=== PATIENT | female | born 1980 | race Caucasian/White ===

== ENCOUNTER 2017-10-02 13:26 | Emergency (ER) | payer MEDICAID ==
[~2017-10-02] VITALS: Ht 147.3 cm; Wt 115.7 kg
[2017-10-02 13:28] VITALS: BP 150/68
[2017-10-02 14:20] VITALS: BP 136/63
== END 2017-10-02 14:20 | disposition home or self-care (01) ==
LOC: MED 13:26
DX: M26.622 Arthralgia of left temporomandibular joint (principal); Z88.8 Allergy status to other drugs, medicaments and biological substances
CPT/HCPCS: 99283

== ENCOUNTER 2019-06-06 20:08 | Emergency (ER) | payer MEDICAID ==
[~2019-06-06] VITALS: Ht 142.2 cm; Wt 112.9 kg
[2019-06-06 20:10] VITALS: BP 127/55
--- NOTE | 2019-06-06 20:18 | NUR ---
PT AMBULATED TO LOBBY WITH VSS
--- NOTE | 2019-06-06 21:09 | NUR ---
AMBULATED TO BED 03 WITH SLOW, STEADY GAIT. PT GRIMACING IN PAIN WHILE WALKING. REPORT GIVEN TO KYLER RN.
--- NOTE | 2019-06-06 21:20 | NUR ---
38 Y/O FEMALE BIB SELF WITH C/O 8/10 LOWER AND MID BACK PAIN S/P FALL X 1 WEEK AGO. PT DOES NOT REMEMBER IF SHE HIT HER HEAD BUT C/O INTERMITTENT DIZZINESS. DENIES LOC. PT TOOK TYLENOL FOR PAIN RELIEF AT 1700 WITH SLIGHT RELIEF OF PAIN. DENIES N/V. PT SITTING IN BED POSITIONED FOR COMFORT. RESPIRATIONS ARE EVEN AND UNLABORED, VSS. MED HX: ANEMIA ALLERGIES: ADVIL
--- NOTE | 2019-06-06 21:45 | NUR ---
DR SANTAMARIA AT BEDSIDE
[2019-06-06] MEDS ORDERED: DEXAMETHASONE 10 MG/ML VIAL IM ONE (22:05)
--- NOTE | 2019-06-06 22:05 | NUR ---
RADIOLOGY AT BEDSIDE.
--- NOTE | 2019-06-06 22:28 | NUR ---
PT RETURN FROM XRAY
--- NOTE | 2019-06-06 23:15 | NUR ---
PT SITTING UPRIGHT IN CHAIR. NO C/O PAIN AT THIS TIME. RESPIRATIONS EVEN AND UNLABORED VSS.
[2019-06-06 23:41] VITALS: BP 131/62
--- NOTE | 2019-06-06 23:41 | NUR ---
Patient discharged with v/s stable. Written and verbal after care instructions given and explained. Pt reports feeling better. Patient alert, oriented and verbalized understanding of instructions. Ambulatory with steady gait. All questions addressed prior to discharge. ID band removed. Patient advised to follow up with PMD. Rx of Robaxin and Tramadol given. Patient educated on indication of medication including possible reaction and side effects. Opportunity to ask questions provided and answered.
== END 2019-06-06 23:41 | disposition home or self-care (01) ==
LOC: MED 20:08
DX: S39.012A Strain of muscle, fascia and tendon of lower back, initial encounter (principal); D64.9 Anemia, unspecified; Z88.8 Allergy status to other drugs, medicaments and biological substances; W01.0XXA Fall on same level from slipping, tripping and stumbling without subsequent striking against object, initial encounter; Y93.89 Activity, other specified; Y92.89 Other specified places as the place of occurrence of the external cause; Y99.8 Other external cause status
CPT/HCPCS: 72040; 72080; 81002; 81025; 96372; 99283; J1100

== ENCOUNTER 2021-04-28 09:02 | Emergency (ER) | payer MEDICAID ==
[~2021-04-28] VITALS: Ht 142.2 cm; Wt 115.7 kg
[2021-04-28 09:13] VITALS: BP 150/85
[2021-04-28] MEDS ORDERED: ACETAMINOPHEN 325 MG TAB PO ONE (09:15)
--- NOTE | 2021-04-28 09:20 | NUR ---
Pt ambulated to bed 04
--- NOTE | 2021-04-28 09:26 | NUR ---
40 Y/o Female BIB self for c/o right wrist/arm/shoulder pain S/P Angiogram to the Right radial 11 days ago. Pt's circulation and sensation is bilat strong and palpable, +3. Gen edema +1 noted. S1/S2 noted with clear lung sounds at this time. R wrist remains benigm with no s/sx of active bleeding at this time, no hematoma noted. Denies N/V/D/CP at this time. PmHx: Cardiomegaly, HTN, HLD, Heart murmur Allergies: Ibuprofen Home meds: Denies
--- NOTE | 2021-04-28 09:39 | NUR ---
US TECH AT PT BEDSIDE.
--- NOTE | 2021-04-28 10:00 | NUR ---
JODIE Myers at bedside to consult with pt
[2021-04-28] MEDS ORDERED: ACET-2619 PO (10:04)
[2021-04-28 10:14] VITALS: BP 132/84
--- NOTE | 2021-04-28 10:14 | NUR ---
Patient discharged with v/s stable. Written and verbal after care instructions given and explained. Patient verbalized understanding with teachback. Ambulatory with steady gait. All questions addressed prior to discharge. Advised to follow up with PMD.
--- NOTE | 2021-04-28 10:16 | NUR ---
CD from results received and verified with Keira AGUILERA. Given to Pt waiting in lobby
== END 2021-04-28 10:14 | disposition home or self-care (01) ==
LOC: MED 09:02
DX: M79.89 Other specified soft tissue disorders (principal); M79.10 Myalgia, unspecified site; I10 Essential (primary) hypertension; Z79.899 Other long term (current) drug therapy; Z88.6 Allergy status to analgesic agent
CPT/HCPCS: 93922; 93930; 93971; 99284; Q0092

== ENCOUNTER 2022-10-06 08:45 | Emergency (ER) | payer MEDICAID ==
[~2022-10-06] VITALS: Ht 142.2 cm; Wt 104.3 kg
[~2022-10-06 08:45] MED LIST: ACET-2619 PO
[2022-10-06 08:49] VITALS: BP 142/102
--- NOTE | 2022-10-06 08:55 | NUR ---
DIFFICULTY BREATHING, MILD CHEST PAIN. DOES ADMIT TO TAKING HTN MEDS INTERMITTENTLY AND NOT ON A REGULAR BASIS. SPEAKING IN FULL SENTENCES, O2 SATS 99%. PMH: HTN, AORTIC STENOSIS MEDS: BP MEDS
--- NOTE | 2022-10-06 09:00 | NUR ---
TO BED 8 WITH NO ACTIVE DISTRESS, NOTIFIED
--- NOTE | 2022-10-06 09:45 | NUR ---
X-Ray at bedside.
[2022-10-06] MEDS ORDERED: ALBUTEROL 0.083% 2.5 MG/3 ML NEBU INH ONE (10:10)
[2022-10-06 10:46] LABS: BASOPHILS % (AUTO) 0.5 % (0.0-2.0); EOSINOPHILS # (AUTO) 0.2 K/uL (0-0.4); EOSINOPHILS % (AUTO) 2.1 % (0.0-4.0); HEMATOCRIT 35.3 % (36-48); HEMOGLOBIN 11.2 g/dL (12.0-16.0); LYMPHOCYTES # (AUTO) 2.1 K/uL (2.5-16.5); LYMPHOCYTES % (AUTO) 23.4 % (20.5-51.1); MEAN CORPUSCULAR HEMOGLOBIN 24 pg (27-31); MEAN CORPUSCULAR HGB CONC 32 g/dL (33-37); MONOCYTES # (AUTO) 0.5 K/uL (0.8-1.0); MONOCYTES % (AUTO) 5.3 % (1.7-9.3); NEUTROPHILS # (AUTO) 6.1 K/uL (1.8-7.7); NEUTROPHILS % (AUTO) 68.7 % (42.2-75.2); PLATELET COUNT (AUTO) 245 K/uL (140-450); RED CELL DISTRIBUTION WIDTH 16.2 % (11.6-13.7); WHITE BLOOD COUNT (AUTO) 8.9 K/uL (4.8-10.8)
[2022-10-06 11:34] LABS: ALBUMIN 3.2 g/dL (3.4-5.0); ANION GAP 14.6 (8-16); CARBON DIOXIDE 23.6 mmol/L (21-32); CREATININE 0.4 mg/dL (0.6-1.3); POTASSIUM 5.2 mmol/L (3.5-5.1); TOTAL BILIRUBIN 0.7 mg/dL (0.0-1.0)
[2022-10-06] MEDS ORDERED: ALBU0.0912 INH (13:14)
[2022-10-06] MEDS ORDERED: AZIT250T4 PO (13:14)
--- NOTE | 2022-10-06 13:21 | NUR ---
IV removed, catheter intact and site benign. Applied folded 4x4 gauze and tape to stop bleeding.
[2022-10-06 13:30] VITALS: BP 142/102
--- NOTE | 2022-10-06 13:31 | NUR ---
Patient discharged with v/s stable. Written and verbal after care instructions given and explained. Patient verbalized understanding. Ambulatory with steady gait. All questions addressed prior to discharge. Advised to follow up with PMD.
== END 2022-10-06 13:30 | disposition home or self-care (01) ==
LOC: MED 08:45
DX: J20.9 Acute bronchitis, unspecified (principal); Z20.822 Contact with and (suspected) exposure to COVID-19; I25.10 Atherosclerotic heart disease of native coronary artery without angina pectoris; I10 Essential (primary) hypertension; Z88.5 Allergy status to narcotic agent; Z79.899 Other long term (current) drug therapy
CPT/HCPCS: 36415; 71045; 80053; 83880; 84484; 85025; 87426; 87804; 93005; 94640; 94760; 99285; J7613; Q0092

== ENCOUNTER 2023-01-25 17:27 | Emergency (ER) | payer MEDICAID ==
[~2023-01-25] VITALS: Ht 152.4 cm; Wt 118.4 kg
[~2023-01-25 17:27] MED LIST changes: +ALBU0.0912 INH; +AZIT250T4 PO
[2023-01-25 17:38] VITALS: BP 131/85; PULSE 87; RESP 16; TEMP 97.6; O2SAT 98
[2023-01-25] MEDS ORDERED: PROM118S5 PO (18:34)
[2023-01-25] MEDS ORDERED: FLONAS NS (18:34)
[2023-01-25] MEDS ORDERED: SUD30 PO (18:34)
[2023-01-25] MEDS ORDERED: LEVO1.5T39 PO (18:34)
[2023-01-25 19:15] VITALS: BP 131/85; PULSE 87; RESP 16; TEMP 97.6; O2SAT 98
== END 2023-01-25 19:15 | disposition home or self-care (01) ==
LOC: MED 17:27
DX: J06.9 Acute upper respiratory infection, unspecified (principal); J32.9 Chronic sinusitis, unspecified; Z76.0 Encounter for issue of repeat prescription; I10 Essential (primary) hypertension; Z79.899 Other long term (current) drug therapy; Z79.2 Long term (current) use of antibiotics; Z88.6 Allergy status to analgesic agent
CPT/HCPCS: 99283

== ENCOUNTER 2023-10-25 18:44 | Inpatient (IN) | payer MEDICAID ==
[~2023-10-25] VITALS: Ht 142.2 cm; Wt 121.6 kg
[~2023-10-25 18:44] MED LIST changes: +FLONAS NS; +LEVO1.5T39 PO; +PROM118S5 PO; +SUD30 PO
[2023-10-25] MEDS ORDERED: ALBUTEROL SULFATE/IPRATROPIU 3 ML SOL IH ONE (18:53)
[2023-10-25 18:57] VITALS: BP 164/94; PULSE 110; RESP 33; TEMP 98.6; O2SAT 97
[2023-10-25] MEDS: ALBUTEROL SULFATE/IPRATROPIU 3 ML SOL IH ONE ×2 (19:03→19:13)
[2023-10-25 19:04] VITALS: PULSE 114; RESP 22; O2SAT 97
[2023-10-25 19:12] LABS: BASOPHILS # (AUTO) 0.1 K/uL (0.00-0.22); BASOPHILS % (AUTO) 0.4 % (0.0-2.0); EOSINOPHILS # (AUTO) 0.2 K/uL (0-0.4); EOSINOPHILS % (AUTO) 1.4 % (0.0-4.0); HEMATOCRIT 33.2 % (36-48); HEMOGLOBIN 10.2 g/dL (12.0-16.0); LYMPHOCYTES # (AUTO) 2.9 K/uL (2.5-16.5); LYMPHOCYTES % (AUTO) 18.9 % (20.5-51.1); MEAN CORPUSCULAR HEMOGLOBIN 19 pg (27-31); MEAN CORPUSCULAR HGB CONC 31 g/dL (33-37); MEAN CORPUSCULAR VOLUME 60.8 fL (80-94); MONOCYTES # (AUTO) 1.3 K/uL (0.8-1.0); MONOCYTES % (AUTO) 8.2 % (1.7-9.3); NEUTROPHILS # (AUTO) 10.8 K/uL (1.8-7.7); NEUTROPHILS % (AUTO) 71.1 % (42.2-75.2); PLATELET COUNT (AUTO) 297 K/uL (140-450); RED BLOOD CELL COUNT(AUTO) 5.45 MIL/uL (4.20-5.40); RED CELL DISTRIBUTION WIDTH 21.9 % (11.6-13.7); WHITE BLOOD COUNT (AUTO) 15.3 K/uL (4.8-10.8)
[2023-10-25 19:15] VITALS: PULSE 101; RESP 24; O2SAT 100
[2023-10-25] MEDS: methylPREDNISolone SS 125 MG/2 ML VIAL IVP ONE (19:18)
[2023-10-25 19:33] LABS: ALBUMIN 3.2 g/dL (3.4-5.0); ANION GAP 12.9 (8-16); CALCIUM 8.1 mg/dL (8.5-10.1); CARBON DIOXIDE 23.9 mmol/L (21-32); CREATININE 0.7 mg/dL (0.6-1.3); POTASSIUM 3.8 mmol/L (3.5-5.1); TOTAL BILIRUBIN 0.7 mg/dL (0.0-1.0)
[2023-10-25 20:28] LABS: FLU A ANTIGEN negative (NEGATIVE); FLU B ANTIGEN NEGATIVE (NEGATIVE)
[2023-10-25] MEDS: AZITHROMYCIN 500 MG in DEXTROSE 5% 250 ML IV ONE (21:35)
[2023-10-25] MEDS ORDERED: AZITHROMYCIN 500 MG in DEXTROSE 5% 250 ML IV SCH ×2 (21:50→23:00)
[2023-10-25] MEDS ORDERED: ACETAMINOPHEN 325 MG TAB PO PRN (21:50)
[2023-10-25] MEDS ORDERED: NACL 0.9% 1,000 ML IV SCH (21:50)
[2023-10-25] MEDS ORDERED: ONDANSETRON 4 MG/2 ML VIAL IVP PRN ×2 (21:50→22:00)
[2023-10-25] MEDS ORDERED: guaiFENesin 20 MG/ML UDC PO PRN ×2 (21:50→22:00)
[2023-10-25] MEDS ORDERED: LORazepam 2 MG/ML VIAL IVP PRN ×2 (21:50→22:00)
[2023-10-25] MEDS ORDERED: HYDROcodone/APAP 5/325 MG 1 TAB TAB PO PRN ×2 (21:50→22:00)
[2023-10-25] MEDS ORDERED: cefTRIAXone 1,000 MG VIAL ONE (21:53)
[2023-10-25] MEDS ORDERED: hydrALAZINE 20 MG/ML VIAL IVP PRN ×2 (21:55→22:00)
[2023-10-25 23:15] VITALS: PULSE 90; RESP 20; O2SAT 95
[2023-10-25] MEDS: NACL 0.9% 1,000 ML IV SCH (23:17)
[2023-10-25] MEDS: AZITHROMYCIN 500 MG INJ VIAL IV ONE (23:33)
[2023-10-26] VITALS (13 sets, daily range): BP systolic 107–123; BP diastolic 60–75; PULSE 76–105; RESP 18–22; TEMP 96.9–98.1; O2SAT 2–99
[2023-10-26] MEDS ORDERED: ALBUTEROL SULFATE/IPRATROPIU 3 ML SOL IH SCH (01:00)
[2023-10-26] MEDS: ALBUTEROL SULFATE/IPRATROPIU 3 ML SOL IH SCH (01:23)
[2023-10-26] MEDS: methylPREDNISolone SS 40 MG/ML VIAL IVP SCH (04:59)
[2023-10-26] MEDS ORDERED: methylPREDNISolone SS 40 MG/ML VIAL IVP SCH (05:00)
[2023-10-26 07:53] LABS: APPEARANCE,URINE CLEAR (CLEAR); BILIRUBIN,URINE NEGATIVE (NEGATIVE); BLOOD, URINE NEGATIVE (NEGATIVE); LEUKOCYTE ESTERASE ,URINE NEGATIVE (NEGATIVE); NITRITE, URINE NEGATIVE (NEGATIVE); PROTEIN,URINE NEGATIVE (NEGATIVE); UGLUCOSE NEGATIVE (NEGATIVE); UROBILINOGEN,URINE 0.2 EU/dL (0.2 - 1)
[2023-10-26 07:55] LABS: COLOR,URINE YELLOW (YELLOW)
[2023-10-26] MEDS ORDERED: ENOXAPARIN 40 MG/0.4 ML SYR SUBQ SCH (09:00)
[2023-10-26 09:45] LABS: BASOPHILS # (AUTO) 0.1 K/uL (0.00-0.22); BASOPHILS % (AUTO) 0.5 % (0.0-2.0); HEMATOCRIT 34.1 % (36-48); HEMOGLOBIN 10.2 g/dL (12.0-16.0); LYMPHOCYTES # (AUTO) 1.1 K/uL (2.5-16.5); LYMPHOCYTES % (AUTO) 6.5 % (20.5-51.1); MEAN CORPUSCULAR HEMOGLOBIN 18 pg (27-31); MEAN CORPUSCULAR HGB CONC 30 g/dL (33-37); MEAN CORPUSCULAR VOLUME 61.2 fL (80-94); MONOCYTES # (AUTO) 0.1 K/uL (0.8-1.0); MONOCYTES % (AUTO) 0.6 % (1.7-9.3); NEUTROPHILS # (AUTO) 15.5 K/uL (1.8-7.7); NEUTROPHILS % (AUTO) 92.4 % (42.2-75.2); PLATELET COUNT (AUTO) 272 K/uL (140-450); RED BLOOD CELL COUNT(AUTO) 5.57 MIL/uL (4.20-5.40); RED CELL DISTRIBUTION WIDTH 21.8 % (11.6-13.7); WHITE BLOOD COUNT (AUTO) 16.7 K/uL (4.8-10.8)
[2023-10-26 09:50] LABS: ANION GAP 15.5 (8-16); CALCIUM 8.3 mg/dL (8.5-10.1); CARBON DIOXIDE 20.3 mmol/L (21-32); CREATININE 0.6 mg/dL (0.6-1.3); POTASSIUM 3.8 mmol/L (3.5-5.1)
[2023-10-26] MEDS: ACETAMINOPHEN 325 MG TAB PO PRN (09:55)
[2023-10-26] MEDS: ENOXAPARIN 40 MG/0.4 ML SYR SUBQ SCH (09:57)
[2023-10-26] MEDS: AZITHROMYCIN 500 MG in DEXTROSE 5% 250 ML IV SCH (22:14)
[2023-10-26] MEDS: FUROSEMIDE 20 MG/2 ML VIAL IVP SCH (22:20)
[2023-10-27] VITALS (11 sets, daily range): BP systolic 105–139; BP diastolic 52–82; PULSE 72–104; RESP 18–22; TEMP 97–97.9; O2SAT 93–99
[2023-10-27 05:30] LABS: BASOPHILS % (AUTO) 0.1 % (0.0-2.0); HEMATOCRIT 32.3 % (36-48); HEMOGLOBIN 9.9 g/dL (12.0-16.0); LYMPHOCYTES % (AUTO) 5.5 % (20.5-51.1); MEAN CORPUSCULAR HEMOGLOBIN 19 pg (27-31); MEAN CORPUSCULAR HGB CONC 31 g/dL (33-37); MEAN CORPUSCULAR VOLUME 60.5 fL (80-94); MONOCYTES # (AUTO) 0.5 K/uL (0.8-1.0); MONOCYTES % (AUTO) 2.5 % (1.7-9.3); NEUTROPHILS # (AUTO) 17.3 K/uL (1.8-7.7); NEUTROPHILS % (AUTO) 91.9 % (42.2-75.2); PLATELET COUNT (AUTO) 277 K/uL (140-450); RED BLOOD CELL COUNT(AUTO) 5.34 MIL/uL (4.20-5.40); RED CELL DISTRIBUTION WIDTH 21.9 % (11.6-13.7); WHITE BLOOD COUNT (AUTO) 18.8 K/uL (4.8-10.8)
[2023-10-27 05:36] LABS: ANION GAP 13.9 (8-16); CALCIUM 8.8 mg/dL (8.5-10.1); CARBON DIOXIDE 24.6 mmol/L (21-32); CREATININE 0.5 mg/dL (0.6-1.3); POTASSIUM 4.5 mmol/L (3.5-5.1)
[2023-10-28] VITALS (10 sets, daily range): BP systolic 101–149; BP diastolic 65–80; PULSE 74–104; RESP 16–18; TEMP 97.1–98.2; O2SAT 83–100
[2023-10-28 05:53] LABS: BASOPHILS % (AUTO) 0.1 % (0.0-2.0); EOSINOPHILS % (AUTO) 0.1 % (0.0-4.0); HEMATOCRIT 32.3 % (36-48); LYMPHOCYTES # (AUTO) 1.1 K/uL (2.5-16.5); LYMPHOCYTES % (AUTO) 6.4 % (20.5-51.1); MEAN CORPUSCULAR HEMOGLOBIN 19 pg (27-31); MEAN CORPUSCULAR HGB CONC 31 g/dL (33-37); MONOCYTES # (AUTO) 0.7 K/uL (0.8-1.0); MONOCYTES % (AUTO) 4.2 % (1.7-9.3); NEUTROPHILS # (AUTO) 15.2 K/uL (1.8-7.7); NEUTROPHILS % (AUTO) 89.2 % (42.2-75.2); PLATELET COUNT (AUTO) 275 K/uL (140-450); RED BLOOD CELL COUNT(AUTO) 5.29 MIL/uL (4.20-5.40); RED CELL DISTRIBUTION WIDTH 22.1 % (11.6-13.7); WHITE BLOOD COUNT (AUTO) 17.1 K/uL (4.8-10.8)
[2023-10-28 06:58] LABS: ALBUMIN 3.2 g/dL (3.4-5.0); ANION GAP 14.2 (8-16); CALCIUM 8.7 mg/dL (8.5-10.1); CARBON DIOXIDE 25.1 mmol/L (21-32); CREATININE 0.6 mg/dL (0.6-1.3); POTASSIUM 4.3 mmol/L (3.5-5.1); TOTAL BILIRUBIN 0.7 mg/dL (0.0-1.0)
[2023-10-28] MEDS ORDERED: METH4TAB1 PO (15:49)
[2023-10-28] MEDS ORDERED: ROB PO (15:49)
[2023-10-28] MEDS ORDERED: AZIT250T4 PO (15:49)
[2023-10-29] MEDS ORDERED: ALBU0.0912 IH (14:54)
== END 2023-10-28 18:00 | disposition home or self-care (01) | DRG 720 ==
LOC: MED 18:44 → MTU 21:50 → MED 21:50 → MTU 23:15
PROVIDERS: ADMIT Student in an Organized Health Care Education/Training Program; ATTEND Student in an Organized Health Care Education/Training Program
DX: A41.9 Sepsis, unspecified organism (principal); J96.01 Acute respiratory failure with hypoxia; I50.43 Acute on chronic combined systolic (congestive) and diastolic (congestive) heart failure; J15.69 Pneumonia due to other Gram-negative bacteria; E66.2 Morbid (severe) obesity with alveolar hypoventilation; J44.0 Chronic obstructive pulmonary disease with (acute) lower respiratory infection; J44.1 Chronic obstructive pulmonary disease with (acute) exacerbation; Z68.44 Body mass index [BMI] 60.0-69.9, adult; I35.0 Nonrheumatic aortic (valve) stenosis; Z88.8 Allergy status to other drugs, medicaments and biological substances; Z79.899 Other long term (current) drug therapy
CPT/HCPCS: 36415; 71045; 80048; 80053; 81003; 83880; 84484; 85025; 85379; 87040; 87081; 93005; 94640; 96374; 96375; 99285; J0456; J0696; J1650; J1940; J2920; J2930; J7060